=== PATIENT | female | born 1945 | race Caucasian/White ===

== ENCOUNTER 2020-02-29 07:53 | Day surgery (SDC) | payer MEDICARE, BC ==
[2020-02-29] VITALS (10 sets, daily range): BP systolic 140–189; BP diastolic 45–66; PULSE 68–90; TEMP 98–98.7
[~2020-02-29] VITALS: Ht 160 cm; Wt 78.5 kg
[~2020-02-29 07:53] MED LIST: ASPIRIN 32325 MG/TAB PO; BIO FLEX PO; CALCIUM 500500 M1 PO; EPA1000 MG PO; HCTZ 25MG TAB25 MG PO; MOBIC15 MG PO; NORCO 325 MG-51 TAB PO; PREMPRO 0.3 MG-1 TAB PO; PRILOSEC 20MG20 MG PO; PROZAC 20MG20 MG PO; RECLAST5 MG/100 M IV
[2020-02-29] MEDS ORDERED: CALCIUM-MAGNES1 EAC1 PO (08:51)
[2020-02-29] MEDS ORDERED: LIPITOR20 MG PO (08:58)
--- NOTE | 2020-02-29 14:31 | NUR ---
PT TO ROOM 323 PER BED WITH REPORT FROM [facility] @3120. PT IS A/O X3 LUNGS CLEAR, BOWEL SOUNDS HYPO ACTIVE. 5 ROBOT SITES WITH CDI BANDAIDS. SCDS BIALTERALLY. IV TO PUMP PER ORDER. DISCHARGE ORDERS CANCELLED PER DR. ESPINOZA.
--- NOTE | 2020-02-29 20:03 | NUR ---
Up to restroom and returned to bed. Assessment complete. Lungs clear. Heart sounds normal. Bowels active x4. Pulses present throughout. No edema noted. IV left hand without complications. Reports 7/10 pain in neck and ABD. Given PRN norco. Patient reports frothy sputum from throat-Dr. Ruiz aware. Will monitor. Denies other needs at this time. Call light in reach.
--- NOTE | 2020-02-29 23:58 | NUR ---
Reports pain. Given PRN norco. Denies other needs. Call light in reach.
[2020-03-01 00:57] VITALS: BP 124/44; PULSE 45; TEMP 98.7
--- NOTE | 2020-03-01 01:52 | NUR ---
Resting in bed asleep. Call light in reach.
[2020-03-01 04:18] VITALS: BP 125/40; PULSE 66; TEMP 98.1
--- NOTE | 2020-03-01 06:09 | NUR ---
Patient required PRN norco for pain control during night. Otherwise uneventful night resting in bed this AM. Call light in reach.
--- NOTE | 2020-03-01 06:40 | NUR ---
Report given to TARA Stuart
[2020-03-01 08:29] VITALS: BP 149/43; PULSE 73; TEMP 98.2
--- NOTE | 2020-03-01 08:37 | NUR ---
PT RESTING IN BED. DR ESPINOZA ROUNDED AND PLAN ON DISCHARGE LATER THIS PM. PT IS A/O X3 DENIES PAIN ON NEEDS AT THIS TIME.
--- NOTE | 2020-03-01 09:19 | NUR ---
Initial visit; Patient thanked [employer] Helper for looking in on her and offering God's blessings.
--- NOTE | 2020-03-01 10:55 | NUR ---
DISCHARGE INSTRUCTIONS REVIEWED WITH PATIENT, QUESTIONS ANSWERED. PT CALLING FOR RIDE.
== END 2020-03-01 12:30 | disposition home or self-care (01) ==
LOC: SDCO 07:53 → SURG 13:50 → SDCO 03-01 12:30
DX: K21.9 Gastro-esophageal reflux disease without esophagitis (principal); Z96.653 Presence of artificial knee joint, bilateral; Z90.49 Acquired absence of other specified parts of digestive tract; Z88.8 Allergy status to other drugs, medicaments and biological substances; Z79.82 Long term (current) use of aspirin
CPT/HCPCS: OP; J0690; J2405; J2704; J3010; J7120

== ENCOUNTER 2021-01-16 09:00 | Day surgery (SDC) | payer MEDICARE, BC ==
[~2021-01-16] VITALS: Ht 162.6 cm; Wt 75.2 kg
[~2021-01-16 09:00] MED LIST changes: +CALCIUM-MAGNES1 EAC1 PO; +LIPITOR20 MG PO
[2021-01-16 10:35] VITALS: BP 176/62; PULSE 63; TEMP 97.2
[2021-01-16] MEDS ORDERED: OSCAL 500 TAB500 MG PO (11:43)
[2021-01-16] MEDS ORDERED: PRINIVIL20 MG PO (11:44)
[2021-01-16] MEDS ORDERED: PROZAC40 MG PO (11:44)
[2021-01-16] MEDS ORDERED: PRILOSEC 20MG20 MG PO (11:45)
[2021-01-16] MEDS ORDERED: SINGULAIR 110 MG/TAB PO (11:45)
[2021-01-16] MEDS ORDERED: CARAFATE 1GM1 G PO (11:47)
[2021-01-16] MEDS ORDERED: B-12 500 MCG PO (11:48)
[2021-01-16] MEDS ORDERED: RECLAST5 MG/100 M (11:50)
[2021-01-16] MEDS ORDERED: MASON NATURAL1200 MG PO (11:51)
[2021-01-16] MEDS ORDERED: PROFERRIN ES12 MG PO (11:52)
[2021-01-16] MEDS ORDERED: TYLENOL PM EXTR1 TA1 PO (11:53)
[2021-01-16 12:10] VITALS: BP 122/63; PULSE 71; TEMP 97.5
[2021-01-16 12:25] VITALS: BP 126/92; PULSE 70
[2021-01-16 12:40] VITALS: BP 133/78; PULSE 68
--- NOTE | 2021-01-16 13:20 | NUR ---
1210 -Patient returned to bay 3 via cart. Post op vitals started. Operative site is clean, dry and well approximated. Coffee and toast provided. Patient alert and oriented, denies and pain or nausea. Vancomycin is hung, but was not running. Vancomycin restarted. 1225- Patient sitting low fowlers in bed, denies any discomfort. Tolerating food and drink well. 1240- Alert and oriented, denies discomfort. Reviewed education material and discharge instrutions, pt and daughter verbalized understanding. Will hold pt until Vancomycin infusing is complete. 1250- Infusing complete, IV discontinued with no complications. Instructed to dress and call nursing station when ready for discharge. 1320- Patient transfered to personal vehicle via wheel chair to be driven home by daughter.
== END 2021-01-16 13:20 | disposition home or self-care (01) ==
LOC: SDCO 09:00
DX: N39.46 Mixed incontinence (principal); R82.71 Bacteriuria; R35.0 Frequency of micturition; N30.20 Other chronic cystitis without hematuria; E78.5 Hyperlipidemia, unspecified; I10 Essential (primary) hypertension; G47.33 Obstructive sleep apnea (adult) (pediatric); K21.9 Gastro-esophageal reflux disease without esophagitis; K21.00 Gastro-esophageal reflux disease with esophagitis, without bleeding; D64.9 Anemia, unspecified; F32.A Depression, unspecified; Z79.82 Long term (current) use of aspirin; Z79.899 Other long term (current) drug therapy; Z99.89 Dependence on other enabling machines and devices; Z87.891 Personal history of nicotine dependence
CPT/HCPCS: C1767; C1778; C1787; C1894; J0690; J1580; J2250; J2704; J3010